=== PATIENT | male | born 1950 | race Caucasian/White ===

== ENCOUNTER 2020-04-08 09:51 | Inpatient (IN) | payer MEDICARE ==
--- NOTE | 2020-04-08 10:05 | ER Document Report ---
ED Medical Screen (RME) - General Chief Complaint: right flank Stated Complaint: RIGHT FLANK PAIN Time Seen by Provider: 04/08/20 10:00 Mode of Arrival: Ambulatory Information source: Patient Notes: 69-year-old male presented to ED for complaint of right flank pain. He does have history of ascites cirrhosis a paracentesis done on and he traveled from [place] on Wednesday. He is alert oriented respirations regular and unlabored speaking in full sentences. He is also on a heart transplant list. He states he has a history of heart problems blood pressure cholesterol cirrhosis. I have greeted and performed a rapid initial assessment of this patient. A comprehensive ED assessment and evaluation of the patient, analysis of test results and completion of medical decision making process will be conducted by an additional ED providers. Past Medical History - Social History Chew tobacco use (# tins/day): No Frequency of alcohol use: None Drug Abuse: None Physical Exam - Vital signs Vitals: Temp 98.0 F 04/08/20 09:58 Course - Vital Signs Vital signs: Temp Pulse Resp BP Pulse Ox 98.0 F 04/08/20 09:58
[2020-04-08 10:35] LABS: ABSOLUTE EOSINOPHILS # (AUTO) 0.2 10^3/uL (0.0-0.6); ABSOLUTE LYMPHOCYTES (AUTO) 0.4 10^3/uL (0.5-4.7); ABSOLUTE MONOCYTES (AUTO) 0.3 10^3/uL (0.1-1.4); ABSOLUTE NEUT (AUTO) 1.8 10^3/uL (1.7-8.2); BASOPHILS % (AUTO) 1.2 % (0-2); EOSINOPHILS % (AUTO) 8.4 % (0-6); HEMATOCRIT 24.5 % (37.9-51.0); HEMOGLOBIN 8.1 g/dL (13.5-17.0); LYMPHOCYTES % (AUTO) 15.6 % (13-45); MEAN CORPUSCULAR HEMOGLOBIN 28.2 pg (27.0-33.4); MEAN CORPUSCULAR HGB CONC 32.8 g/dL (32.0-36.0); MEAN CORPUSCULAR VOLUME 86 fl (80-97); MONOCYTES % (AUTO) 10.6 % (3-13); RED BLOOD COUNT 2.86 10^6/uL (4.35-5.55); RED CELL DISTRIBUTION WIDTH 18.3 % (11.5-14.0); SEGMENTED NEUTROPHILS % (AUTO) 64.2 % (42-78); TOTAL CELLS COUNTED % (AUTO) 100 %; WHITE BLOOD COUNT 2.8 10^3/uL (4.0-10.5)
[2020-04-08 10:39] LABS: APPEARANCE,URINE CLEAR; BILIRUBIN,URINE NEGATIVE (NEGATIVE); COLOR,URINE YELLOW; GLUCOSE, URINE NEGATIVE (NEGATIVE); KETONES,URINE NEGATIVE (NEGATIVE); LEUKOCYTE ESTERASE,URINE NEGATIVE (NEGATIVE); NITRITE,URINE NEGATIVE (NEGATIVE); PROTEIN,URINE NEGATIVE (NEGATIVE); URINE SPECIFIC GRAVITY 1.009; UROBILINOGEN,URINE NEGATIVE mg/dL (<2.0)
[2020-04-08 10:51] LABS: ALBUMIN 2.9 g/dL (3.5-5.0); ALKALINE PHOSPHATASE 74 U/L (38-126); ANION GAP 7 (5-19); ASPARTATE AMINO TRANSFERASE 29 U/L (17-59); BILIRUBIN,TOTAL 0.6 mg/dL (0.2-1.3); BLOOD UREA NITROGEN 23 mg/dL (7-20); CALCIUM 8.6 mg/dL (8.4-10.2); CARBON DIOXIDE 28 mmol/L (22-30); CHLORIDE 101 mmol/L (98-107); GLUCOSE 84 mg/dL (75-110); POTASSIUM 3.2 mmol/L (3.6-5.0); TOTAL PROTEIN 6.3 g/dL (6.3-8.2)
[2020-04-08 11:04] LABS: PLATELET COUNT 96 10^3/uL (150-450)
[2020-04-08 11:27] LABS: INTERNATIONAL RATION (INR) 1.43; PARTIAL THROMBOPLASTIN TIME 32.7 SEC (23.5-35.8); PROTHROMBIN TIME 17.5 SEC (11.4-15.4)
[2020-04-08] MEDS: ALBUMIN HUMAN 12.5 GM/50 ML RTUINJ IV SCH ×4 (11:37→17:37)
[2020-04-08 11:46] LABS: NT PRO BNP 820 pg/mL (<125)
[2020-04-08 11:50] LABS: TROPONIN I < 0.012 ng/mL
--- NOTE | 2020-04-08 11:56 | RADIOLOGY REPORT (SQ) ---
EXAM DESCRIPTION: ACUTE ABDOMEN SERIES IMAGES COMPLETED DATE/TIME: 04/08/2020 11:34 am REASON FOR STUDY: abd pain/ cirrhosis/ascites/peritonitis COMPARISON: None. NUMBER OF VIEWS: Three views. TECHNIQUE: Frontal chest, supine abdomen and upright/decubitus abdomen radiographic images acquired. LIMITATIONS: None. FINDINGS: CHEST: A stent overlies the right suprahilar region. There is fullness in the right juan r region. Mild right pleural effusion and compressive atelectasis right lower lung zone. Scarring i n the right apex of the lung. The left lung is clear. No evidence of pneumothorax. FREE AIR: None. No abnormal gas collections. BOWEL GAS PATTERN: Nonobstructive pattern. No dilated loops. A few small air-fluid levels on the upr ight image. CALCIFICATIONS: Bilateral subcentimeter nephrolithiasis. HARDWARE: None in the abdomen. SOFT TISSUES: Prominent appearance to the soft tissues right lateral abdominal wall raising the ques tion of mass. BONES: No acute fracture. No worrisome bone lesions. OTHER: No other significant finding. IMPRESSION: 1. A few nonspecific small air-fluid levels on the upright image. 2. Bilateral subcentimeter nephrolithiasis. 3. Mild fullness in the right hilar region. A stent overlies the right suprahilar region. Mild rig ht pleural effusion and compressive atelectasis right lower lung zone. Comparison with any prior out side examinations suggested. . TECHNICAL DOCUMENTATION: JOB ID: [id number] 2010 [employer]- All Rights Reserved Reading location - IP/workstation name: [email or web address]
--- NOTE | 2020-04-08 15:07 | RADIOLOGY REPORT (SQ) ---
EXAM DESCRIPTION: U/S ABD PARACENTESIS IMAGES COMPLETED DATE/TIME: 04/08/2020 1:53 pm REASON FOR STUDY: ascites/peritonitis/cirrhosis COMPARISON None. LIMITATIONS: None. PROCEDURE: The procedure, risks, benefits, and alternatives were discussed with the patient and the patient's family who then gave written consent. The left lower quadrant was then marked utilizing so nographic guidance and a time-out was performed to document correct marking verification. The area around the selected percutaneous access site was then prepped and draped with 2% chlorhexidi ne utilizing standard sterile technique. After that, the selected access site was infiltrated with 5 ml of 1% lidocaine. A 6 Icelandic Kfem-T-Mrnieujf catheter was then introduced into the fluid-filled p eritoneal cavity and the fluid was aspirated. After the fluid was aspirated, the catheter was removed and the entry site was covered with a sterile bandage. No immediate complications were noted. Volume of Fluid: 2000 mL. Quality of the Fluid: Cloudy straw colored. Was the fluid collected for analysis? Yes. Images acquired during the procedure were submitted to PACS. The patient tolerated the procedure with local anesthesia. At the end of the procedure the patient's condition was unchanged from the preprocedural baseline. Documentation of [id number] time the proceduralist spent monitoring the patient: 15 minutes. IMPRESSION: Successful ultrasound-guided paracentesis. COMMENT: Patient medication list reviewed: Yes- Quality ID# [id number]:Eligible professional attests to doc umenting in the medical record they obtained, updated, or reviewed the patient's current medications. TECHNICAL DOCUMENTATION: JOB ID: [id number] 2010 [employer]- All Rights Reserved Reading location - IP/workstation name: [email or web address]
[2020-04-08 15:09] LABS: FLUID TYPE PERITONEAL
[2020-04-08 15:10] LABS: FLUID APPEARANCE SLIGHTLY HAZY; FLUID COLOR STRAW; FLUID SOURCE ABDOMEN; FLUID VISCOSITY LIQUID
[2020-04-08] MEDS ORDERED: CEFEPIME 2 GM/D5W RTU 2 GM/50 ML RTUPB IV ONE (15:47)
[2020-04-08] MEDS ORDERED: POTASSI CL 20 MEQ/50 ML RIDER 20 MEQ/50 ML RTUPB IV SCH (15:52)
[2020-04-08] MEDS ORDERED: NORMAL SALINE 250 ML IV ONE (16:03)
--- NOTE | 2020-04-08 16:32 | ER Document Report ---
Entered by GRICEL MONTOYA SCRIBE 04/08/20 1107 Acting as scribe for:ROBBY JAMES MD ED General - General Chief Complaint: Flank Pain Stated Complaint: RIGHT FLANK PAIN Time Seen by Provider: 04/08/20 10:00 Mode of Arrival: Ambulatory Information source: Patient Notes: This 69 year old male patient presents to the emergency department today with flank pain. Patient states his has a history of cirrhosis of the liver and has a paracentesis every other week. Patient states his last paracentesis was x4 days ago in [place]. Patient states he lives in [place] and is visiting [place] to see his sister and granddaughter. Patient states he left [place] x3 days ago to travel here and noticed swelling in his legs x2 days ago. Patient also notes swelling in his abdomen and penis. - Related Data Allergies/Adverse Reactions: Sulfa (Sulfonamide Antibiotics) Allergy (Verified 04/08/20 10:04) Difficulty breathing adhesive tape Adverse Reaction (Verified 04/08/20 10:04) heparin Adverse Reaction (Verified 04/08/20 10:04) Past Medical History - General Information source: Patient - Social History Smoking Status: Never Smoker Cigarette use (# per day): No Chew tobacco use (# tins/day): No Frequency of alcohol use: None Drug Abuse: None Lives with: Family Family History: Reviewed & Not Pertinent Patient has homicidal ideation: No - Past Medical History Cardiac Medical History: Reports: Hx Hypercholesterolemia, Hx Hypertension Pulmonary Medical History: Reports: Hx COPD Renal/ Medical History: Reports: Hx Kidney Stones Malignancy Medical History: Reports Hx Lung Cancer - 2011 GI Medical History: Reports: Hx Cirrhosis - liver Past Surgical History: Reports: Hx Orthopedic Surgery - r thumb Review of Systems - Review of Systems Constitutional: No symptoms reported EENT: No symptoms reported Cardiovascular: No symptoms reported Respiratory: No symptoms reported Gastrointestinal: See HPI, Abdomen distended Genitourinary: See HPI, Flank pain Male Genitourinary: See HPI Musculoskeletal: No symptoms reported Skin: No symptoms reported Hematologic/Lymphatic: No symptoms reported Neurological/Psychological: No symptoms reported -: Yes All other systems reviewed and negative Physical Exam - Vital signs Vitals: Temp Pulse Resp BP Pulse Ox 98.0 F 79 16 97/59 L 100 04/08/20 09:56 04/08/20 09:56 04/08/20 09:56 04/08/20 09:56 04/08/20 09:56 - General General appearance: Appears well, Alert - HEENT Head: Normocephalic, Atraumatic Eyes: Normal Pupils: PERRL Mouth/Lips: Other - Edentulous - Respiratory Respiratory status: No respiratory distress Chest status: Nontender Breath sounds: Normal Chest palpation: Normal - Cardiovascular Rhythm: Regular Heart sounds: Normal auscultation, S1 appreciated, S2 appreciated Murmur: No - Abdominal Inspection: Other - Skin is warm Distension: Distended, Fluid wave Bowel sounds: Normal Tenderness: Other - Tenderness with rebound - Extremities General upper extremity: Other - bilateral ecchymosis. No: Edema Notes: Tenderness with palpation to the left calf. Edema and erythema of the left calf. Skin is warm. - Neurological Neuro grossly intact: Yes Cognition: Normal Orientation: AAOx4 Speech: Normal - Psychological Associated symptoms: Normal affect, Normal mood - Skin Skin Temperature: Warm Skin Moisture: Dry Skin Color: Normal Course - Re-evaluation Re-evalutation: 04/08/20 16:06 Patient is status post paracentesis. Patient was draining cloudy yellow fluid about 2 L,. No complications of the procedure. Patient is now receiving IV albumin 50 g . Patient is currently hypotensive with a systolic of 70. Discussed case with the hospitalist regarding admission and the plan is to continue the albumin infusions and also give patient a 250 bolus of normal saline. Patient also will be receiving another 250 mL of fluid with the IV p otassium riders. 04/08/20 16:08 Patient has chronic anemia of chronic disease. Patient has cryptic cirrhosis of the liver and recurrent paracentesis every other week is done in his home town in [place]. Patient also takes diuretic medications to assist in getting rid of fluids. Patient is out of town and have traveled about 3 days to get here from [place] to visit with family members. Patient developed some edema and his lower extremities pain in his left calf scrotal edema as well and increased ascites and warm to touch skin in the left leg and the abdominal area. On exam patient had rebound tenderness and I was suspicious for acute spontaneous bacterial peritonitis. Patient has been worked up to that degree inasmuch as he did have clouded aspirate drainage during the paracentesis. 04/08/20 16:32 Patient's blood pressure is now up to 92/67 patient in no acute distress. - Vital Signs Vital signs: Temp Pulse Resp BP Pulse Ox 98.0 F 79 15 70/49 L 100 04/08/20 10:05 04/08/20 10:05 04/08/20 15:16 04/08/20 15:16 04/08/20 15:16 - Laboratory Result Diagrams: 04/08/20 10:21 04/08/20 10:21 Laboratory results interpreted by me: 04/08/20 04/08/20 04/08/20 10:21 10:21 10:21 WBC 2.8 L RBC 2.86 L Hgb 8.1 L Hct 24.5 L RDW 18.3 H Plt Count 96 L Eos % (Auto) 8.4 H Absolute Lymphs (auto) 0.4 L PT 17.5 H D-Dimer Sodium 135.7 L Potassium 3.2 L BUN 23 H Creatinine 1.47 H Est GFR ( Amer) 58 L Est GFR (MDRD) Non-Af 48 L NT-Pro-B Natriuret Pep Albumin 2.9 L 04/08/20 04/08/20 10:21 10:21 WBC RBC Hgb Hct RDW Plt Count Eos % (Auto) Absolute Lymphs (auto) PT D-Dimer 3.23 H Sodium Potassium BUN Creatinine Est GFR ( Amer) Est GFR (MDRD) Non-Af NT-Pro-B Natriuret Pep 820 H Albumin 04/08/20 16:09 Patient had several abnormal laboratories including white blood cell count 2.8 hemoglobin 8.1 platelet count of 96 patient also has some renal insufficiency with a BUN of 23 and creatinine 1.4 patient has a positive d-dimer 3.2 BNP of 820. Patient shared with me his prior labs that he has included in his cell phone. And in March patient's creatinine was 1.3. Patient's hemoglobin remains an 8 point to 8.5 region. Platelet counts as usual as usual around 95 patient is white count has been low and lower on the labs that he shared with [facility] prior to coming to [place] he had levels of 1.8 and 2.0 in March. - Diagnostic Test Radiology reviewed: Image reviewed, Reports reviewed Radiology results interpreted by me: 04/08/20 16:11 Abdominal acute abdominal series. Patient has nonspecific specific bowel gas pattern no obstruction seen. Patient's chest x-ray does not show an infiltrate however patient does have a right hilar fullness and a stent is in is noted in that area. Also noted is a right pleural effusion and compression atelectasis in the right base. 04/08/20 16:12 Venous Doppler study of both lower extremities shows no evidence of DVT. 04/08/20 16:24 - EKG Interpretation by Me Additional EKG results interpreted by me: 04/08/20 16:30 Twelve-lead EKG shows normal sinus rhythm rate of 84 borderline T wave abnormalities in diffuse leads. Critical Care Note - Critical Care Note Total time excluding time spent on procedures (mins): 39 - Patient with multiple medical problems including ascites hypotension cellulitis peritonitis and management of fluids and scheduling scans work-up DVT as well as spontaneous bacterial peritonitis and coordinating discussing laboratory values and management of patient's hypertension. Discharge - Discharge Clinical Impression: Cirrhosis of liver with ascites, Abdominal pain, Peritonitis (acute) generalized, Cellulitis of left leg, Chronic leukopenia, Chronic anemia, Chronic idiopathic thrombocytopenia Condition: Fair Disposition: ADMITTED INPATIENT Admitting Provider: Layla (Hospitalist) Unit Admitted: Telemetry I personally performed the services described in the documentation, reviewed and edited the documentation which was dictated to the scribe in my presence, and it accurately records my words and actions.
--- NOTE | 2020-04-08 16:33 | RADIOLOGY REPORT (SQ) ---
EXAM DESCRIPTION: VENOUS BILATERAL LOWER IMAGES COMPLETED DATE/TIME: 04/08/2020 4:19 pm REASON FOR STUDY: lower ext swelling COMPARISON: None. TECHNIQUE: Dynamic and static katz scale and color images acquired of both lower extremity venous sy stems. Selected spectral images acquired with additional compression and augmentation maneuvers. Imag es stored on PACS. LIMITATIONS: None. FINDINGS: RIGHT LEG COMMON FEMORAL AND FEMORAL: Normal phasicity, compression and augmentation. No visualized echogenic m aterial on katz scale. No defects on color images. POPLITEAL: Normal compression and augmentation. No visualized echogenic material on katz scale. No de fects on color images. CALF VESSELS: Normal compression and augmentation. No visualized echogenic material on katz scale. No defects on color image. GSV AND SSV: Normal compression. No visualized echogenic material on katz scale. No defects on color images. ANY DEEP VENOUS INSUFFICIENCY: No. ANY EVIDENCE OF POPLITEAL CYST: No. OTHER: No other finding. LEFT LEG COMMON FEMORAL AND FEMORAL: Normal phasicity, compression and augmentation. No visualized echogenic m aterial on katz scale. No defects on color images. POPLITEAL: Normal compression and augmentation. No visualized echogenic material on katz scale. No de fects on color images. CALF VESSELS: Normal compression and augmentation. No visualized echogenic material on katz scale. No defects on color images. GSV AND SSV: Normal compression. No visualized echogenic material on katz scale. No defects on color images. ANY DEEP VENOUS INSUFFICIENCY: No. ANY EVIDENCE POPLITEAL CYST: No. OTHER: No other finding. IMPRESSION: NO EVIDENCE DVT OR SVT IN EITHER LEG. TECHNICAL DOCUMENTATION: JOB ID: [id number] 2010 [employer]- All Rights Reserved Reading location - IP/workstation name: [email or web address]
[2020-04-08] MEDS ORDERED: ACETAMINOPHEN 325 MG TABLET PO PRN (16:58)
[2020-04-08] MEDS ORDERED: NORMAL SALINE 1000 ML 1,000 ML IV PRN ×2 (16:58→17:47)
[2020-04-08] MEDS ORDERED: ALBUTEROL SULFATE 0.083% NEB 2.5 MG/3 ML AMPUL NEB PRN (16:58)
[2020-04-08] MEDS ORDERED: MAG HYDROX/AL HYDROX/SIMETH SUSP 30 ML UDCUP PO PRN (17:04)
[2020-04-08] MEDS ORDERED: PROMETHAZINE HCL INJ 25 MG/1 ML VIAL IV PRN (17:04)
[2020-04-08] MEDS ORDERED: OXYCODONE-ACETAMINOPHEN 5-325 MG TABLET PO PRN (17:04)
[2020-04-08] MEDS ORDERED: ONDANSETRON HCL INJ/PF 4 MG/2 ML SDV IV PRN (17:04)
[2020-04-08] MEDS: POTASSIUM CHLORIDE 10 MEQ TABLET.ER PO SCH ×2 (17:36→22:50)
--- NOTE | 2020-04-08 17:49 | PDOC H&P ---
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 Following that he drove cross-country from [place] to [place]; states that he felt well while traveling. However, on Wednesday developed right abdominal/flank discomfort, bilateral lower extremity erythema, and scrotal edema which has not occurred to him in the past. Valuation in the emergency department demonstrated hypotension (75/54 following paracentesis and removal of 2 L fluid here) but without significant tachycardia or symptomology. Patient reports that his normal blood pressures typically run 100 systolic over 70s to 80s. He was also found to have pancytopenia (WBC is 2.8, hemoglobin 9.1, platelet 96) which he reports is his norm; received Venofer infusion and B12 prior to his trip. INR elevated to 1.43, d-dimer 3.23, chemistry notable for mild hyponatremia, hypokalemia, creatinine 1.47/BUN 23, proBNP 820, albumin 2.90 with a negative lactic acid. Urinalysis is negative. Paracentesis with removal of 2 L hazy straw fluid does not appear to be SBP (WBC is 141, RBC 116, neutrophils 32; cultures pending. LLE Venous Doppler is negative for SVT/DVT. He is provided 1L NS, Cefepime 2gm, and Albumin 50 gm by the ED provider. He is referred to the hospitalist service for admission and management of the above stated complaints and findings. Past Medical History Cardiac Medical History: Reports: Hyperlipidema, Hypertension Denies: Congestive Heart Failure, Coronary Artery Disease, DVT, Myocardial Infarction Pulmonary Medical History: Reports: Chronic Obstructive Pulmonary Disease (COPD) EENT Medical History: Reports: None Neurological Medical History: Reports: None Endocrine Medical History: Reports: Hypothyroidism Denies: Diabetes Mellitus Type 2 Renal/ Medical History: Reports: None Malignancy Medical History: Reports: Lung Cancer - 2012 GI Medical History: Reports: Cirrhosis - ASH Musculoskeltal Medical History: Reports: None Skin Medical History: Reports: None Psychiatric Medical History: Reports: None Traumatic Medical History: Reports: None Hematology: Reports: Anemia Infectious Medical History: Reports: None Past Surgical History Past Surgical History: Reports: Orthopedic Surgery - r thumb Social History Information Source: Patient Lives with: Family Smoking Status: Never Smoker Electronic Cigarette use?: No Frequency of Alcohol Use: None Hx Recreational Drug Use: No Hx Prescription Drug Abuse: No Family History Family History: Reviewed & Not Pertinent Parental Family History Reviewed: Yes Children Family History Reviewed: Yes Sibling(s) Family History Reviewed.: Yes Medication/Allergy Allergies/Adverse Reactions: Sulfa (Sulfonamide Antibiotics) Allergy (Verified 04/08/20 10:04) Difficulty breathing adhesive tape Adverse Reaction (Verified 04/08/20 10:04) heparin Adverse Reaction (Verified 04/08/20 10:04) Review of Systems Constitutional: ABSENT: chills, fever(s), headache(s), weight gain, weight loss Eyes: ABSENT: visual disturbances Ears: ABSENT: hearing changes Cardiovascular: ABSENT: chest pain, dyspnea on exertion, edema, orthropnea, palpitations Respiratory: ABSENT: cough, hemoptysis Gastrointestinal: PRESENT: as per HPI, abdominal pain. ABSENT: constipation, diarrhea, hematemesis, hematochezia, nausea, vomiting Genitourinary: PRESENT: as per HPI. ABSENT: dysuria, hematuria Musculoskeletal: ABSENT: joint swelling Integumentary: PRESENT: as per HPI, erythema - BLE; L>R. ABSENT: rash, wounds Neurological: ABSENT: abnormal gait, abnormal speech, confusion, dizziness, focal weakness, syncope Psychiatric: ABSENT: anxiety, depression, homidical ideation, suicidal ideation Endocrine: ABSENT: cold intolerance, heat intolerance, polydipsia, polyuria Hematologic/Lymphatic: ABSENT: easy bleeding, easy bruising Physical Exam Vital Signs: Temp Pulse Resp BP Pulse Ox 98.0 F 79 20 92/67 L 100 04/08/20 10:05 04/08/20 10:05 04/08/20 16:16 04/08/20 16:16 04/08/20 16:16 Intake & Output 04/07/20 04/08/20 04/09/20 06:59 06:59 06:59 Intake Total 150 Balance 150 Weight 80.1 kg General appearance: PRESENT: no acute distress, cooperative, thin - loss of muscle mass and subcutaneous fat; large abdomen/panniculus, well-developed, well-nourished Head exam: PRESENT: atraumatic, normocephalic Eye exam: PRESENT: conjunctiva pink, EOMI, PERRLA. ABSENT: scleral icterus Mouth exam: PRESENT: moist, tongue midline Neck exam: ABSENT: carotid bruit, JVD, lymphadenopathy, thyromegaly Respiratory exam: PRESENT: clear to auscultation juan, symmetrical, unlabored. ABSENT: rales, rhonchi, wheezes Cardiovascular exam: PRESENT: RRR, +S1, +S2. ABSENT: diastolic murmur, rubs, systolic murmur Pulses: PRESENT: normal dorsalis pedis pul Vascular exam: PRESENT: normal capillary refill GI/Abdominal exam: PRESENT: normal bowel sounds, soft, tenderness - RLQ; pain seems to be localized to soft tissues of panniculus not peritoneal space/organs. ABSENT: distended, guarding, mass, organolmegaly, rebound Rectal exam: PRESENT: deferred Extremities exam: PRESENT: full ROM. ABSENT: calf tenderness, clubbing, pedal edema Neurological exam: PRESENT: alert, awake, oriented to person, oriented to place, oriented to time, oriented to situation, CN II-XII grossly intact. ABSENT: motor sensory deficit Psychiatric exam: PRESENT: appropriate affect, normal mood. ABSENT: homicidal ideation, suicidal ideation Skin exam: PRESENT: dry, erythema - w/ warmth and slight edema to BLE; L>R, warm. ABSENT: cyanosis, rash Results Laboratory Results: 04/08/20 10:21 04/08/20 10:21 04/08/20 04/08/20 04/08/20 10:21 10:21 10:21 WBC 2.8 L RBC 2.86 L Hgb 8.1 L Hct 24.5 L MCV 86 MCH 28.2 MCHC 32.8 RDW 18.3 H Plt Count 96 L Seg Neutrophils % 64.2 Sodium 135.7 L Potassium 3.2 L Chloride 101 Carbon Dioxide 28 Anion Gap 7 BUN 23 H Creatinine 1.47 H Est GFR ( Amer) 58 L Glucose 84 Lactic Acid Calcium 8.6 Total Bilirubin 0.6 AST 29 Alkaline Phosphatase 74 Total Protein 6.3 Albumin 2.9 L Lipase 39.0 Urine Color YELLOW Urine Appearance CLEAR Urine pH 7.0 Ur Specific Granger 1.009 Urine Protein NEGATIVE Urine Glucose (UA) NEGATIVE Urine Ketones NEGATIVE Urine Blood NEGATIVE Urine Nitrite NEGATIVE Ur Leukocyte Esterase NEGATIVE Urine WBC (Auto) 3 Urine RBC (Auto) 1 Fluid Type Fluid Source Fluid Color Fluid Appearance Fluid Viscosity Fluid WBC Fluid RBC 04/08/20 04/08/20 04/08/20 10:21 11:10 13:08 WBC RBC Hgb Hct MCV MCH MCHC RDW Plt Count Seg Neutrophils % Sodium Potassium Chloride Carbon Dioxide Anion Gap BUN Creatinine Est GFR ( Amer) Glucose Lactic Acid 1.4 Calcium Total Bilirubin AST Alkaline Phosphatase Total Protein Albumin Lipase Urine Color Cancelled Urine Appearance Cancelled Urine pH Cancelled Ur Specific Granger Cancelled Urine Protein Cancelled Urine Glucose (UA) Cancelled Urine Ketones Cancelled Urine Blood Cancelled Urine Nitrite Cancelled Ur Leukocyte Esterase Cancelled Urine WBC (Auto) Cancelled Urine RBC (Auto) Cancelled Fluid Type PERITONEAL Fluid Source ABDOMEN Fluid Color STRAW Fluid Appearance SLIGHTLY HAZY Fluid Viscosity LIQUID Fluid WBC 141 Fluid RBC 116 04/08/20 10:21 Troponin I < 0.012 NT-Pro-B Natriuret Pep 820 H Impressions: Paracentesis Ultrasound 04/08/20 00:00 IMPRESSION: Successful ultrasound-guided paracentesis. Acute Abdomen Series 04/08/20 11:05 IMPRESSION: 1. A few nonspecific small air-fluid levels on the upright image. 2. Bilateral subcentimeter nephrolithiasis. 3. Mild fullness in the right hilar region. A stent overlies the right suprahilar region. Mild right pleural effusion and compressive atelectasis right lower lung zone. Comparison with any prior outside examinations suggested. . Venous Doppler Study 04/08/20 12:00 IMPRESSION: NO EVIDENCE DVT OR SVT IN EITHER LEG. Assessment and Plan - Diagnosis (1) Hypotension Qualifiers: Hypotension type: unspecified hypotension type Qualified Code(s): I95.9 - Hypotension, unspecified Is this a current diagnosis for this admission?: Yes Plan: Patient reports typical blood pressures 100s/70-80 70/49 following paracentesis w/ slight increase in HR He has received 1L NS by ED provider. Random and AM cortisol levels pending TSH pending Admitted to the medical floor Continue NS @ 50ml/hr Start Midodrine 5 mg TID Orthostatic blood pressures each shift CARROL hose Fall precautions (2) Cellulitis of left leg Is this a current diagnosis for this admission?: Yes Plan: LLE +1 edema with erythema, warmth, and tenderness Venous Doppler negative for SVT/DVT Blood cultures pending Elevate as tolerated IV Cefepime Analgesics as needed (3) Abdominal pain Qualifiers: Abdominal location: right lower quadrant Qualified Code(s): R10.31 - Right lower quadrant pain Is this a current diagnosis for this admission?: Yes Plan: On exam, pain seems to be localized to soft tissues of panniculus not peritoneal space/organs He does have dense, pitting edema to this area of his abdomen. No erythema not ed. Paracentesis today does not appear infections; cultures pending Blood cultures pending. Will empirically treat with IV Cefepime pending culture results Analgesics as needed (4) Pancytopenia Is this a current diagnosis for this admission?: Yes Plan: Chronic per patient. Likely complicated by Cirrhosis. Recently started receiving Venofer and B12. No evidence of bleeding. Monitor CBC (5) Chronic anemia Is this a current diagnosis for this admission?: Yes Plan: As above. (6) Cirrhosis of liver with ascites Qualifiers: Hepatic cirrhosis type: unspecified hepatic cirrhosis Qualified Code(s): K74.60 - Unspecified cirrhosis of liver; R18.8 - Other ascites Is this a current diagnosis for this admission?: Yes Plan: Patient reports related to ASH Receives paracentesis q14 days. Paracentesis / with 8.3L removed followed by albumin Paracentesis today with 2L removed followed by albumin Resume home medications once reconciled. - Time Time Spent with patient: 35 or more minutes Medications reviewed and adjusted accordingly: Yes Anticipated discharge: Home Within: within 72 hours - Inpatient Certification Based on my medical assessment, after consideration of the patient's comorbi dities, presenting symptoms, or acuity I expect that the services needed warrant INPATIENT care.: Yes I certify that my determination is in accordance with my understanding of Medicare's requirements for reasonable and necessary INPATIENT services [42 CFR 412.3e].: Yes Medical Necessity: Significant Comorbidiites Make Outpatient Treatment Too Risky, Need For IV Fluids, Need for IV Antibiotics, Risk of Complication if Not Cared For in Hospital
[2020-04-08] MEDS: MIDODRINE HCL 5 MG TABLET PO SCH (19:06)
[2020-04-08] MEDS ORDERED: CEFEPIME 2 GM/D5W RTU 2 GM/50 ML RTUPB IV SCH (22:00)
[2020-04-08] MEDS: FAMOTIDINE 20 MG TABLET PO SCH (22:50)
[2020-04-09] MEDS ORDERED: CEFEPIME 2 GM/D5W RTU 2 GM/50 ML RTUPB IV ONE (00:31)
[2020-04-09] MEDS: FAMOTIDINE 20 MG TABLET PO SCH (00:38)
[2020-04-09 05:15] LABS: HEMATOCRIT 20.3 % (37.9-51.0); MEAN CORPUSCULAR HGB CONC 33.5 g/dL (32.0-36.0); MEAN CORPUSCULAR VOLUME 84 fl (80-97); RED BLOOD COUNT 2.43 10^6/uL (4.35-5.55); RED CELL DISTRIBUTION WIDTH 18.1 % (11.5-14.0)
[2020-04-09 05:22] LABS: INTERNATIONAL RATION (INR) 1.52; PROTHROMBIN TIME 18.5 SEC (11.4-15.4)
[2020-04-09 05:28] LABS: PLATELET COUNT 63 10^3/uL (150-450)
[2020-04-09 05:29] LABS: HEMOGLOBIN 6.8 g/dL (13.5-17.0)
[2020-04-09 05:36] LABS: ALBUMIN 2.7 g/dL (3.5-5.0); ALKALINE PHOSPHATASE 61 U/L (38-126); ASPARTATE AMINO TRANSFERASE 23 U/L (17-59); BILIRUBIN,TOTAL 0.6 mg/dL (0.2-1.3); BLOOD UREA NITROGEN 19 mg/dL (7-20); CALCIUM 8.5 mg/dL (8.4-10.2); GLUCOSE 86 mg/dL (75-110); POTASSIUM 3.9 mmol/L (3.6-5.0); TOTAL PROTEIN 5.6 g/dL (6.3-8.2)
[2020-04-09 05:42] LABS: ANION GAP 6 (5-19); CARBON DIOXIDE 26 mmol/L (22-30); CHLORIDE 103 mmol/L (98-107)
[2020-04-09 05:43] LABS: ABSOLUTE LYMPHOCYTES# (MANUAL) 0.2 10^3/uL (0.5-4.7); BASOPHILS % (MANUAL) 2 % (0-2); EOSINOPHILS % (MANUAL) 0 % (0-6); LYMPHOCYTES % (MANUAL) 10 % (13-45); MONOCYTES % (MANUAL) 0 % (3-13); SEGMENTED NEUTROPHILS % (MAN) 88 % (42-78); TOTAL CELLS COUNTED 50
[2020-04-09 05:47] LABS: ANISOCYTOSIS 1+; OVALOCYTES 1+; PLATELET COMMENT DECREASED; POIKILOCYTOSIS 1+; TOXIC GRANULATION SLIGHT
[2020-04-09 05:50] LABS: WHITE BLOOD COUNT 1.5 10^3/uL (4.0-10.5)
[2020-04-09] MEDS ORDERED: NORMAL SALINE 250 ML IV PRN ×2 (08:23)
[2020-04-09] MEDS ORDERED: HYDROXYZINE PAMOATE 25 MG CAPSULE PO PRN (09:29)
[2020-04-09 09:32] LABS: ABSOLUTE RETICS # 0.076 10^6/uL (0.028-0.122); RETICULOCYTE COUNT (AUTO) 3.12 % (0.66-2.85)
--- NOTE | 2020-04-09 09:32 | EKG REPORT ---
SEVERITY:- ABNORMAL ECG - ATRIAL FLUTTER, A-RATE 300 NONSPECIFIC T ABNORMALITIES, DIFFUSE LEADS : Confirmed by: Kitty Tomlinson MD 09-Apr-2020 09:31:47
[2020-04-09 09:53] LABS: IRON(TIBC) 45.9 ug/dL (49-181)
[2020-04-09] MEDS ORDERED: SPIRONOLACTONE 25 MG TABLET PO SCH (10:00)
[2020-04-09] MEDS ORDERED: (PENDING PHARMACY ID) (Magnesium Oxide [Magnesium] 400 MG) PO SCH (10:00)
[2020-04-09] MEDS ORDERED: FUROSEMIDE 20 MG TABLET PO SCH (10:00)
[2020-04-09] MEDS ORDERED: (PENDING PHARMACY ID) (Vitamin E [Vitamin E] 400 UNIT) PO SCH (10:00)
[2020-04-09] MEDS: RIFAXIMIN 550 MG TABLET PO SCH ×2 (10:36→17:47)
[2020-04-09] MEDS: CYANOCOBALAMIN (VITAMIN B-12) 1,000 MCG TABLET PO SCH (10:37)
[2020-04-09] MEDS: CEFEPIME HCL 2 GM in DEXTROSE 5%-WATER 50 ML IV SCH ×2 (10:37→21:50)
[2020-04-09] MEDS: CHOLECALCIFEROL (D3) 1,000 UNIT (25 MCG) TABLET PO SCH (10:37)
[2020-04-09] MEDS: DOCUSATE SODIUM 100 MG CAPSULE PO SCH (10:50)
[2020-04-09] MEDS: MIDODRINE HCL 5 MG TABLET PO SCH ×3 (10:51→17:34)
[2020-04-09] MEDS: POLYETHYLENE GLYCOL 3350 POWDER 17 GM/1 PACKET PO SCH (10:51)
[2020-04-09 10:56] LABS: FOLATE 3.93 ng/mL (>2.76)
[2020-04-09] MEDS ORDERED: LEVOTHYROXINE SODIUM 0.088 MG TABLET PO ONE (12:00)
[2020-04-09] MEDS: OXYCODONE HCL IR 5 MG TABLET PO PRN ×2 (12:20→21:49)
--- NOTE | 2020-04-09 12:30 | PDOC PROGRESS REPORT ---
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 Patient was seen on morning rounds. He was found sitting up to the recliner, co mfortably, on room air. He reports that he is very upset today and has numerous complaints. He wants to be discharged today and is not satisfied with continued IV antibiotics pending blood and peritoneal fluid culture results. He is also frustrated that [facility] uses generic version of medications that or not similar to what he takes at home. He states that he has had an adverse reaction to spir onolactone and wants that discontinued; he is educated on the importance of addressing allergies and adverse reactions upon each admission so that these medications can be avoided. In fact, he has a complaint about every medication ordered at this time. Greater than 30 minutes was spent at the bedside discussing his medication regiment, anemia with recommendation for transfusion, antibiotics pending blood culture results, and continued recommendation that he remain in-house. He is advised of his right to leave AGAINST MEDICAL ADVICE or to decline individual interventions/medications. At the end of the discussion, the patient remains frustrated, however, is agreeable with continuing the plan for transfusion and antibiotics. He denies fever, chills, chest pain, dyspnea, cough, abdominal pain, nausea and vomiting. Discussed plan of care with nursing. Reason For Visit: CELLULITIS Physical Exam Vital Signs: Temp Pulse Resp BP Pulse Ox 99.1 F 115 H 16 110/60 100 04/09/20 11:20 04/09/20 11:20 04/09/20 11:20 04/09/20 11:20 04/09/20 11:20 Intake & Output 04/08/20 04/09/20 04/10/20 06:59 06:59 06:59 Intake Total 550 Output Total 200 Balance 350 Weight 80.1 kg General appearance: PRESENT: no acute distress, thin - loss of muscle mass and subcutaneous fat; large abdomen/panniculus, well-developed. ABSENT: cooperative Head exam: PRESENT: atraumatic, normocephalic Eye exam: PRESENT: conjunctiva pink, EOMI, PERRLA. ABSENT: scleral icterus Ear exam: PRESENT: normal external ear exam Mouth exam: PRESENT: moist, tongue midline Respiratory exam: PRESENT: symmetrical, unlabored, other - Room air Cardiovascular exam: PRESENT: RRR Vascular exam: PRESENT: normal capillary refill Extremities exam: PRESENT: full ROM. ABSENT: calf tenderness, clubbing, pedal edema Musculoskeletal exam: PRESENT: ambulatory Neurological exam: PRESENT: alert, awake, oriented to person, oriented to place, oriented to time, oriented to situation, CN II-XII grossly intact. ABSENT: motor sensory deficit Psychiatric exam: PRESENT: agitated, appropriate affect, normal mood. ABSENT: homicidal ideation, suicidal ideation Skin exam: PRESENT: dry, erythema - BLE; improved from yesterday, warm. ABSENT: cyanosis, rash Results Laboratory Results: 04/09/20 04:13 04/09/20 04:13 04/08/20 04/09/20 04/09/20 13:08 04:13 04:13 WBC 1.5 L* D RBC 2.43 L Hgb 6.8 L Hct 20.3 L MCV 84 MCH 28.0 MCHC 33.5 RDW 18.1 H Plt Count 63 L Seg Neutrophils % Not Reportable Retic Count (auto) Sodium 134.9 L Potassium 3.9 Chloride 103 Carbon Dioxide 26 Anion Gap 6 BUN 19 Creatinine 1.31 H Est GFR ( Amer) > 60 Glucose 86 Calcium 8.5 Iron TIBC % Saturation Transferrin Ferritin Total Bilirubin 0.6 AST 23 Alkaline Phosphatase 61 Total Protein 5.6 L Albumin 2.7 L Vitamin B12 Folate TSH Fluid Type PERITONEAL Fluid Source ABDOMEN Fluid Color STRAW Fluid Appearance SLIGHTLY HAZY Fluid Viscosity LIQUID Fluid WBC 141 Fluid RBC 116 Blood Type Antibody Screen 04/09/20 04/09/20 04/09/20 04:13 09:00 09:00 WBC RBC Hgb Hct MCV MCH MCHC RDW Plt Count Seg Neutrophils % Retic Count (auto) 3.12 H Sodium Potassium Chloride Carbon Dioxide Anion Gap BUN Creatinine Est GFR ( Amer) Glucose Calcium Iron 45.9 L TIBC 198 L % Saturation 23 Transferrin Ferritin 102.00 Total Bilirubin AST Alkaline Phosphatase Total Protein Albumin Vitamin B12 > 1000.0 H Folate 3.93 TSH 3.65 Fluid Type Fluid Source Fluid Color Fluid Appearance Fluid Viscosity Fluid WBC Fluid RBC Blood Type Antibody Screen 04/09/20 04/09/20 09:00 09:00 WBC RBC Hgb Hct MCV MCH MCHC RDW Plt Count Seg Neutrophils % Retic Count (auto) Sodium Potassium Chloride Carbon Dioxide Anion Gap BUN Creatinine Est GFR ( Amer) Glucose Calcium Iron TIBC % Saturation Transferrin 121.61 L Ferritin Total Bilirubin AST Alkaline Phosphatase Total Protein Albumin Vitamin B12 Folate TSH Fluid Type Fluid Source Fluid Color Fluid Appearance Fluid Viscosity Fluid WBC Fluid RBC Blood Type A POSITIVE Antibody Screen NEGATIVE 04/08/20 10:21 Troponin I < 0.012 NT-Pro-B Natriuret Pep 820 H Impressions: Paracentesis Ultrasound 04/08/20 00:00 IMPRESSION: Successful ultrasound-guided paracentesis. Acute Abdomen Series 04/08/20 11:05 IMPRESSION: 1. A few nonspecific small air-fluid levels on the upright image. 2. Bilateral subcentimeter nephrolithiasis. 3. Mild fullness in the right hilar region. A stent overlies the right suprahilar region. Mild right pleural effusion and compressive atelectasis right lower lung zone. Comparison with any prior outside examinations suggested. . Venous Doppler Study 04/08/20 12:00 IMPRESSION: NO EVIDENCE DVT OR SVT IN EITHER LEG. Assessment and Plan - Diagnosis (1) Hypotension Qualifiers: Hypotension type: unspecified hypotension type Qualified Code(s): I95.9 - Hypotension, unspecified Is this a current diagnosis for this admission?: Yes Plan: Improved; BP 110/60. Patient reports typical blood pressures 100s/70-80 Yesterday blood pressure was 70/49 following paracentesis w/ slight increase in HR Random and a.m. cortisol levels are appropriate TSH normal Admitted to the medical floor Continue NS @ 50ml/hr Continue midodrine 5 mg TID; will hold for SBP greater than 100 per patient request Orthostatic blood pressures each shift CARROL hose Fall precautions (2) Cellulitis of left leg Is this a current diagnosis for this admission?: Yes Plan: Low-grade temperature of 99; WBC is trending down 2.8->1.5. Absolute neutrophil 1.3 LLE +1 edema with erythema, warmth, and tenderness; slightly improved today Venous Doppler negative for SVT/DVT Blood cultures negative at 24 hours Elevate as tolerated IV Cefepime Analgesics as needed (3) Abdominal pain Qualifiers: Abdominal location: right lower quadrant Qualified Code(s): R10.31 - Right lower quadrant pain Is this a current diagnosis for this admission?: Yes Plan: On exam, pain seems to be localized to soft tissues of panniculus not peritoneal space/organs He does have dense, pitting edema to this area of his abdomen. No erythema n oted. Paracentesis yesterday does not appear infections; cultures negative at 1 day Blood cultures negative at 24 hours Will empirically treat with IV Cefepime pending culture results Analgesics as needed (4) Pancytopenia Is this a current diagnosis for this admission?: Yes Plan: Worsened today. Chronic per patient. Likely complicated by Cirrhosis. Stated he recently started receiving Venofer and B12. Panel confirms iron deficiency anemia No evidence of bleeding. We will transfuse 1 unit PRBC for hemoglobin drift 8.1-> 6.8 associated with hypotension and tachycardia. Monitor CBC (5) Chronic anemia Is this a current diagnosis for this admission?: Yes Plan: As above. (6) Cirrhosis of liver with ascites Qualifiers: Hepatic cirrhosis type: unspecified hepatic cirrhosis Qualified Code(s): K74.60 - Unspecified cirrhosis of liver; R18.8 - Other ascites Is this a current diagnosis for this admission?: Yes Plan: Patient reports related to ASH Receives paracentesis q14 days. Paracentesis / with 8.3L removed followed by albumin Paracentesis today with 2L removed followed by albumin Have resumed home dose rifaximin and Bumex. - Time Time Spent with patient: 35 or more minutes Medications reviewed and adjusted accordingly: Yes Anticipated discharge: Home Within: within 48 hours - Pending negative culture results.
[2020-04-09 13:21] LABS: PATH REVIEW PATHOLOGIST REVIEWED
[2020-04-09 13:23] LABS: PATH REVIEW PATHOLOGIST REVIEWED
[2020-04-09] MEDS: VITAMIN E (DL, ACETATE) 400 UNIT CAPSULE PO SCH (17:47)
[2020-04-09] MEDS ORDERED: PANTOPRAZOLE SODIUM 40 MG TABLET.DR PO SCH (18:00)
[2020-04-09 19:25] LABS: HEMATOCRIT 24.8 % (37.9-51.0); HEMOGLOBIN 8.2 g/dL (13.5-17.0); MEAN CORPUSCULAR HEMOGLOBIN 27.9 pg (27.0-33.4); MEAN CORPUSCULAR HGB CONC 32.9 g/dL (32.0-36.0); MEAN CORPUSCULAR VOLUME 85 fl (80-97); RED BLOOD COUNT 2.92 10^6/uL (4.35-5.55); RED CELL DISTRIBUTION WIDTH 17.9 % (11.5-14.0); WHITE BLOOD COUNT 1.9 10^3/uL (4.0-10.5)
[2020-04-09 19:50] LABS: PLATELET COUNT 63 10^3/uL (150-450)
[2020-04-09 19:53] LABS: ABSOLUTE LYMPHOCYTES# (MANUAL) 0.2 10^3/uL (0.5-4.7); ABSOLUTE MONOCYTES # (MANUAL) 0.2 10^3/uL (0.1-1.4); BASOPHILS % (MANUAL) 0 % (0-2); EOSINOPHILS % (MANUAL) 0 % (0-6); LYMPHOCYTES % (MANUAL) 12 % (13-45); MONOCYTES % (MANUAL) 10 % (3-13); SEGMENTED NEUTROPHILS % (MAN) 78 % (42-78); TOTAL CELLS COUNTED 50
[2020-04-09 19:55] LABS: OVALOCYTES SLIGHT; PLATELET COMMENT DECREASED; POIKILOCYTOSIS SLIGHT
[2020-04-09 19:56] LABS: ANISOCYTOSIS 1+
[2020-04-09] MEDS ORDERED: TAMSULOSIN HCL 0.4 MG CAP.SR.24H PO SCH (22:00)
[2020-04-09] MEDS ORDERED: (PENDING PHARMACY ID) (Pravastatin Sodium [Pravastatin Sodium] 40 MG) PO SCH (22:00)
[2020-04-09] MEDS ORDERED: TIZANIDINE HCL 4 MG TABLET PO SCH (22:00)
[2020-04-09] MEDS ORDERED: ATORVASTATIN CALCIUM 10 MG TABLET PO SCH (22:00)
[2020-04-10] MEDS: OXYCODONE HCL IR 5 MG TABLET PO PRN (05:10)
[2020-04-10 05:55] LABS: BLOOD UREA NITROGEN 15 mg/dL (7-20); CALCIUM 8.4 mg/dL (8.4-10.2); GLUCOSE 89 mg/dL (75-110); POTASSIUM 3.7 mmol/L (3.6-5.0)
[2020-04-10 05:56] LABS: HEMATOCRIT 22.6 % (37.9-51.0); MEAN CORPUSCULAR HEMOGLOBIN 28.3 pg (27.0-33.4); MEAN CORPUSCULAR HGB CONC 33.6 g/dL (32.0-36.0); MEAN CORPUSCULAR VOLUME 84 fl (80-97); RED BLOOD COUNT 2.69 10^6/uL (4.35-5.55); RED CELL DISTRIBUTION WIDTH 18.3 % (11.5-14.0)
[2020-04-10] MEDS ORDERED: LEVOTHYROXINE SODIUM 0.088 MG TABLET PO SCH (06:00)
[2020-04-10 06:02] LABS: CARBON DIOXIDE 26 mmol/L (22-30); CHLORIDE 105 mmol/L (98-107)
[2020-04-10 06:18] LABS: ANION GAP 4 (5-19)
[2020-04-10 06:20] LABS: HEMOGLOBIN 7.6 g/dL (13.5-17.0); PLATELET COUNT 57 10^3/uL (150-450); WHITE BLOOD COUNT 1.5 10^3/uL (4.0-10.5)
[2020-04-10 06:25] LABS: ABSOLUTE LYMPHOCYTES# (MANUAL) 0.2 10^3/uL (0.5-4.7); ABSOLUTE MONOCYTES # (MANUAL) 0.2 10^3/uL (0.1-1.4); BAND NEUTROPHILS % (MANUAL) 2 % (3-5); BASOPHILS % (MANUAL) 0 % (0-2); EOSINOPHILS % (MANUAL) 4 % (0-6); LYMPHOCYTES % (MANUAL) 12 % (13-45); MONOCYTES % (MANUAL) 12 % (3-13); SEGMENTED NEUTROPHILS % (MAN) 70 % (42-78); TOTAL CELLS COUNTED 50
[2020-04-10 06:28] LABS: ANISOCYTOSIS 1+; OVALOCYTES SLIGHT; TEAR DROP CELLS SLIGHT
[2020-04-10 06:29] LABS: PLATELET COMMENT DECREASED
[2020-04-10] MEDS: DOCUSATE SODIUM 100 MG CAPSULE PO SCH ×2 (09:13→09:23)
[2020-04-10] MEDS: CYANOCOBALAMIN (VITAMIN B-12) 1,000 MCG TABLET PO SCH (09:13)
[2020-04-10] MEDS: BUMETANIDE 1 MG TABLET PO SCH ×2 (09:14→11:36)
[2020-04-10] MEDS: VITAMIN E (DL, ACETATE) 400 UNIT CAPSULE PO SCH (09:14)
[2020-04-10] MEDS: POLYETHYLENE GLYCOL 3350 POWDER 17 GM/1 PACKET PO SCH (09:14)
[2020-04-10] MEDS: RIFAXIMIN 550 MG TABLET PO SCH (09:14)
[2020-04-10] MEDS: CHOLECALCIFEROL (D3) 1,000 UNIT (25 MCG) TABLET PO SCH (09:14)
[2020-04-10] MEDS: CEFEPIME HCL 2 GM in DEXTROSE 5%-WATER 50 ML IV SCH (09:14)
[2020-04-10] MEDS: MIDODRINE HCL 5 MG TABLET PO SCH ×2 (09:15→14:24)
[2020-04-10] MEDS ORDERED: MAGNESIUM OXIDE 400 MG TABLET PO SCH (10:00)
[2020-04-10 12:04] VITALS: BP 115/74
[2020-04-10] MEDS ORDERED: METOPROLOL TARTRATE 25 MG TABLET PO SCH (13:00)
[2020-04-10] MEDS ORDERED: CLINDAMYCIN HCL 150 MG CAPSULE PO SCH (14:00)
--- NOTE | 2020-04-10 16:02 | PDOC DISCHARGE SUMMARY ---
Impression - Admit/DC Date/PCP Admission Date/Primary Care Provider: 04/08/20 18:05 Discharge Date: 04/10/20 - Discharge Diagnosis (1) Abdominal pain Is this a current diagnosis for this admission?: Yes (2) Cellulitis of left leg Is this a current diagnosis for this admission?: Yes (3) Chronic anemia Is this a current diagnosis for this admission?: Yes (4) Cirrhosis of liver with ascites Is this a current diagnosis for this admission?: Yes (5) Hypotension Is this a current diagnosis for this admission?: Yes (6) Pancytopenia Is this a current diagnosis for this admission?: Yes - Additional Information Discharge Diet: As Tolerated Discharge Activity: Activity As Tolerated Referrals: OUT,OF [facility] PCP [Other] (PATIENT IS FROM OUT [facility] AND WILL FOLLOW UP WITH PCP UPON RETURNING HOME.) Prescriptions: Clindamycin HCl [Cleocin 150 mg Capsule] 150 mg PO Q8 PRN 5 Days #15 capsule PRN Reason: Home Medications: Albuterol Sulfate [Proair Hfa Inhalation Aerosol 8.5 gm Mdi] 1 puff IH Q4HP PRN 04/08/20 Bumetanide [Bumex 1 mg Tablet] 1 mg PO BID@0800,1200 04/08/20 Cholecalciferol (Vitamin D3) [Vitamin D3 1000 Unit Tablet] 1,000 unit PO DAILY 04/08/20 Cyanocobalamin (Vitamin B-12) [Vitamin B-12 1000 Mcg Tablet] 1 tab PO DAILY 04/08/20 Eplerenone 50 mg PO BID@0800,1200 04/08/20 Hydroxyzine Pamoate [Vistaril 25 mg Capsule] 25 mg PO Q8HP PRN 04/08/20 Iron Polysaccharide Complex [Poly-Iron] 150 mg PO BID 04/08/20 Levalbuterol HCl [Xopenex Concentrate] 1.25 mg IH DAILYP PRN 04/08/20 Magnesium Oxide [Magnesium] 400 mg PO DAILY 04/08/20 Ondansetron HCl [Zofran 8 mg Tablet] 4 mg PO Q8 04/08/20 Oxycodone HCl [Oxy-Ir 5 mg Tablet] 5 mg PO TIDP PRN 04/08/20 Pantoprazole Sodium [Protonix [address] Tablet] 40 mg PO QPM 04/08/20 Polyethylene Glycol 3350 [Miralax Powder 17 gm/Packet] 1 packet PO DAILY 04/08/20 Pravastatin Sodium 40 mg PO QHS 04/08/20 Promethazine HCl [Phenergan 25 mg Tablet] 12.5 mg PO BID 04/08/20 Rifaximin [Xifaxan 550 Mg Tablet] 550 mg PO BID 04/08/20 Tamsulosin HCl [Flomax] 0.4 mg PO QHS 04/08/20 Tizanidine HCl 4 mg PO QHS 04/08/20 Vitamin E 400 unit PO BID 04/08/20 Clindamycin HCl [Cleocin 150 mg Capsule] 150 mg PO Q8 PRN 5 Days #15 capsule 04/10/20 History of Present Illiness History of Present Illness: WILDA WOLF is a 69 year old male Hospital Course Hospital Course: (1) Hypotension Resolved. Baseline hypotensive due to history of cirrhosis. Patient reports typical blood pressures 100s/70-80 Random and a.m. cortisol levels are appropriate TSH normal Continue NS @ 50ml/hr Continued midodrine 5 mg TID CARROL hose Fall precautions (2) Cellulitis of left leg Resolved. Left lower extremity below the knee trace swelling with chronic skin changes, no warmth, erythema, discharge or tenderness. Neurovascularly intact. Presented with low-grade temperature of 99; WBC is trending down 2.8->1.5. Absolute neutrophil 1.3 and LLE +1 edema with erythema, warmth, and tenderness; slightly improved today Venous Doppler negative for SVT/DVT. Blood cultures negative x48 hours. Received 3 days of IV cefepime. Was switched to clindamycin for 5 days. (3) Abdominal pain Much improved. Paracentesis fluid negative for infection. No sign of SBP. Tolerating. Having normal bowel and bladder movements. Blood cultures negative at 48 hours Start empirically on IV cefepime. (4) Pancytopenia Stable. At baseline. Chronic per patient. Likely complicated by Cirrhosis. Stated he recently started receiving Venofer and B12. Panel confirms iron deficiency anemia. No evidence of bleeding. Patient extremely anxious to leave the hospital however concern was raised about his pancytopenia but patient stated that he has always been pancytopenic and he actually showed me his previous results on his patient portal which confirmed his chronic pancytopenia. A copy of previous labs which shows that patient has history of chronic pancytopenia could be find in the chart. Afebrile at the time of discharge. Strongly advised to follow-up with PCP. (5) Chronic anemia As above. (6) Cirrhosis of liver with ascites Patient reports related to ASH Receives paracentesis q14 days. Last paracentesis 04/04 with 8.3L removed followed by albumin Paracentesis on admission with 2L removed followed by albumin Resumed home dose rifaximin and Bumex. Physical Exam Vital Signs: Temp Pulse Resp BP Pulse Ox 98.0 F 93 16 115/74 100 04/10/20 13:44 04/10/20 13:44 04/10/20 13:44 04/10/20 13:44 04/10/20 13:44 Intake & Output 04/09/20 04/10/20 04/11/20 06:59 06:59 06:59 Intake Total 550 3080 1255 Output Total 200 200 Balance 350 2880 1255 Weight 80.1 kg 80.1 kg 80.1 kg General appearance: PRESENT: no acute distress, well-developed, well-nourished Head exam: PRESENT: atraumatic, normocephalic Respiratory exam: PRESENT: clear to auscultation juan. ABSENT: rales, rhonchi, wheezes Cardiovascular exam: PRESENT: RRR. ABSENT: diastolic murmur, rubs, systolic murmur GI/Abdominal exam: PRESENT: ascites, normal bowel sounds, soft. ABSENT: distended, guarding, mass, organolmegaly, rebound, tenderness Neurological exam: PRESENT: alert, awake, oriented to person, oriented to place, oriented to time, oriented to situation, CN II-XII grossly intact. ABSENT: motor sensory deficit Skin exam: PRESENT: dry, intact, warm. ABSENT: cyanosis, rash Results Laboratory Results: WBC 1.5 10^3/uL (4.0-10.5) L* 04/10/20 04:37 RBC 2.69 10^6/uL (4.35-5.55) L 04/10/20 04:37 Hgb 7.6 g/dL (13.5-17.0) L 04/10/20 04:37 Hct 22.6 % (37.9-51.0) L 04/10/20 04:37 MCV 84 fl (80-97) 04/10/20 04:37 MCH 28.3 pg (27.0-33.4) 04/10/20 04:37 MCHC 33.6 g/dL (32.0-36.0) 04/10/20 04:37 RDW 18.3 % (11.5-14.0) H 04/10/20 04:37 Plt Count 57 10^3/uL (150-450) L 04/10/20 04:37 Lymph % (Auto) Not Reportable 04/10/20 04:37 [place] % (Auto) Not Reportable 04/10/20 04:37 Eos % (Auto) Not Reportable 04/10/20 04:37 Baso % (Auto) Not Reportable 04/10/20 04:37 Reticulocyte # 0.076 10^6/uL (0.028-0.122) 04/09/20 09:00 Absolute Neuts (auto) Not Reportable 04/10/20 04:37 Absolute Lymphs (auto) Not Reportable 04/10/20 04:37 Absolute Monos (auto) Not Reportable 04/10/20 04:37 Absolute Eos (auto) Not Reportable 04/10/20 04:37 Absolute Basos (auto) Not Reportable 04/10/20 04:37 Total Counted 50 04/10/20 04:37 Seg Neutrophils % Not Reportable 04/10/20 04:37 Seg Neuts % (Manual) 70 % (42-78) 04/10/20 04:37 Band Neutrophils % 2 % (3-5) L 04/10/20 04:37 Lymphocytes % (Manual) 12 % (13-45) L 04/10/20 04:37 Monocytes % (Manual) 12 % (3-13) 04/10/20 04:37 Eosinophils % (Manual) 4 % (0-6) 04/10/20 04:37 Basophils % (Manual) 0 % (0-2) 04/10/20 04:37 Abs Neuts (Manual) 1.1 10^3/uL (1.7-8.2) L 04/10/20 04:37 Abs Lymphs (Manual) 0.2 10^3/uL (0.5-4.7) L 04/10/20 04:37 Abs Monocytes (Manual) 0.2 10^3/uL (0.1-1.4) 04/10/20 04:37 Absolute Eos (Manual) 0.1 10^3/uL (0.0-0.6) 04/10/20 04:37 Abs Basophils (Manual) 0.0 10^3/uL (0.0-0.2) 04/10/20 04:37 Toxic Granulation SLIGHT 04/09/20 04:13 Platelet Comment DECREASED 04/10/20 04:37 Poikilocytosis SLIGHT 04/09/20 19:02 Anisocytosis 1+ 04/10/20 04:37 Tear Drop Cells SLIGHT 04/10/20 04:37 Ovalocytes SLIGHT 04/10/20 04:37 Retic Count (auto) 3.12 % (0.66-2.85) H 04/09/20 09:00 PT 18.5 SEC (11.4-15.4) H 04/09/20 04:13 INR 1.52 04/09/20 04:13 APTT 32.7 SEC (23.5-35.8) 04/08/20 10:21 D-Dimer 3.23 ug/mL (0.00-0.50) H 04/08/20 10:21 Sodium 134.5 mmol/L (137-145) L 04/10/20 04:37 Potassium 3.7 mmol/L (3.6-5.0) 04/10/20 04:37 Chloride 105 mmol/L (98-107) 04/10/20 04:37 Carbon Dioxide 26 mmol/L (22-30) 04/10/20 04:37 Anion Gap 4 (5-19) L 04/10/20 04:37 BUN 15 mg/dL (7-20) 04/10/20 04:37 Creatinine 0.96 mg/dL (0.52-1.25) 04/10/20 04:37 Est GFR ( Amer) > 60 (>60) 04/10/20 04:37 Est GFR (MDRD) Non-Af > 60 (>60) 04/10/20 04:37 Glucose 89 mg/dL (75-110) 04/10/20 04:37 Lactic Acid 1.4 mmol/L (0.7-2.1) 04/08/20 11:10 Calcium 8.4 mg/dL (8.4-10.2) 04/10/20 04:37 Iron 45.9 ug/dL (49-181) L 04/09/20 09:00 TIBC 198 ug/dL (250-450) L 04/09/20 09:00 % Saturation 23 % 04/09/20 09:00 Transferrin 121.61 mg/dL (206.00-381.00) L 04/09/20 09:00 Ferritin 102.00 ng/mL (17.9-464.0) 04/09/20 09:00 Total Bilirubin 0.6 mg/dL (0.2-1.3) 04/09/20 04:13 Direct Bilirubin 0.0 mg/dL (0.0-0.4) 04/09/20 04:13 Neonat Total Bilirubin Not Reportable 04/09/20 04:13 Neonat Direct Bilirubin Not Reportable 04/09/20 04:13 Neonat Indirect Bili Not Reportable 04/09/20 04:13 AST 23 U/L (17-59) 04/09/20 04:13 ALT 12 U/L (<50) 04/09/20 04:13 Alkaline Phosphatase 61 U/L (38-126) 04/09/20 04:13 Troponin I < 0.012 ng/mL 04/08/20 10:21 NT-Pro-B Natriuret Pep 820 pg/mL (<125) H 04/08/20 10:21 Total Protein 5.6 g/dL (6.3-8.2) L 04/09/20 04:13 Albumin 2.7 g/dL (3.5-5.0) L 04/09/20 04:13 Lipase 39.0 U/L (23-300) 04/08/20 10:21 Vitamin B12 > 1000.0 pg/mL (239-931) H 04/09/20 09:00 Folate 3.93 ng/mL (>2.76) 04/09/20 09:00 TSH 3.65 uIU/mL (0.47-4.68) 04/09/20 04:13 Random Cortisol 10.40 ug/dL (None Established) 04/08/20 10:21 Cortisol AM Sample 5.42 ug/dL (4.46-22.7) 04/09/20 04:13 Urine Color Cancelled 04/08/20 10:21 Urine Color YELLOW 04/08/20 10:21 Urine Appearance CLEAR 04/08/20 10:21 Urine Appearance Cancelled 04/08/20 10:21 Urine pH 7.0 (5.0-9.0) 04/08/20 10:21 Urine pH Cancelled 04/08/20 10:21 Ur Specific [place] 1.009 04/08/20 10:21 Ur Specific [place] Cancelled 04/08/20 10:21 Urine Protein Cancelled 04/08/20 10:21 Urine Protein NEGATIVE mg/dL (NEGATIVE) 04/08/20 10:21 Urine Glucose (UA) Cancelled 04/08/20 10:21 Urine Glucose (UA) NEGATIVE mg/dL (NEGATIVE) 04/08/20 10:21 Urine Ketones Cancelled 04/08/20 10:21 Urine Ketones NEGATIVE mg/dL (NEGATIVE) 04/08/20 10:21 Urine Blood Cancelled 04/08/20 10:21 Urine Blood NEGATIVE (NEGATIVE) 04/08/20 10:21 Urine Nitrite Cancelled 04/08/20 10:21 Urine Nitrite NEGATIVE (NEGATIVE) 04/08/20 10:21 Urine Bilirubin Cancelled 04/08/20 10:21 Urine Bilirubin NEGATIVE (NEGATIVE) 04/08/20 10:21 Urine Urobilinogen Cancelled 04/08/20 10:21 Urine Urobilinogen NEGATIVE mg/dL (<2.0) 04/08/20 10:21 Ur Leukocyte Esterase Cancelled 04/08/20 10:21 Ur Leukocyte Esterase NEGATIVE (NEGATIVE) 04/08/20 10:21 Urine WBC (Auto) 3 /HPF 04/08/20 10:21 Urine WBC (Auto) Cancelled 04/08/20 10:21 Urine RBC (Auto) 1 /HPF 04/08/20 10:21 Urine RBC (Auto) Cancelled 04/08/20 10:21 U Hyaline Cast (Auto) 18 /LPF 04/08/20 10:21 U Hyaline Cast (Auto) Cancelled 04/08/20 10:21 Urine Bacteria (Auto) Cancelled 04/08/20 10:21 Urine Red Cell Clumps Cancelled 04/08/20 10:21 Urine WBC Clumps Cancelled 04/08/20 10:21 Squamous Epi Cells Auto <1 /HPF 04/08/20 10:21 Squamous Epi Cells Auto Cancelled 04/08/20 10:21 U Non-Squamous Epis Auto Cancelled 04/08/20 10:21 Calcium Carbonate Cryst Cancelled 04/08/20 10:21 Calcium Phosphate Cryst Cancelled 04/08/20 10:21 Calcium Oxalate Cr Auto Cancelled 04/08/20 10:21 Leucine Crystals Cancelled 04/08/20 10:21 Cystine Crystals Cancelled 04/08/20 10:21 Uric Acid Cryst (Auto) Cancelled 04/08/20 10:21 Triple Phos Cryst (Auto) Cancelled 04/08/20 10:21 Tyrosine Crystals Cancelled 04/08/20 10:21 Amorphous Sediment Auto Cancelled 04/08/20 10:21 Cellular Casts Cancelled 04/08/20 10:21 Epithelial Casts (Auto) Cancelled 04/08/20 10:21 Fatty Casts Cancelled 04/08/20 10:21 Granular Casts (Auto) Cancelled 04/08/20 10:21 Waxy Casts (Auto) Cancelled 04/08/20 10:21 Broad Casts Cancelled 04/08/20 10:21 RBC Casts (Auto) Cancelled 04/08/20 10:21 WBC Casts (Auto) Cancelled 04/08/20 10:21 Urine Mucus (Auto) Cancelled 04/08/20 10:21 Urine Mucus (Auto) RARE /LPF 04/08/20 10:21 U Trichomonas (Auto) Cancelled 04/08/20 10:21 Ur Yeast w Hyphae Cancelled 04/08/20 10:21 Urine Yeast (Budding) Cancelled 04/08/20 10:21 Urine Ascorbic Acid Cancelled 04/08/20 10:21 Urine Ascorbic Acid NEGATIVE (NEGATIVE) 04/08/20 10:21 Fluid Type PERITONEAL 04/08/20 13:08 Fluid Source ABDOMEN 04/08/20 13:08 Fluid Color STRAW 04/08/20 13:08 Fluid Appearance SLIGHTLY HAZY 04/08/20 13:08 Fluid Viscosity LIQUID 04/08/20 13:08 Fluid WBC 141 /uL 04/08/20 13:08 Fluid RBC 116 /uL 04/08/20 13:08 Fluid Seg Neutrophils 32 % 04/08/20 13:08 Fluid Lymphocytes 62 % 04/08/20 13:08 Fluid Monocytes 6 % 04/08/20 13:08 Fluid Eosinophils 0 % 04/08/20 13:08 Fluid Basophils 0 % 04/08/20 13:08 Slides for Path Review PATHOLOGIST REVIEWED 04/09/20 04:13 Blood Type A POSITIVE 04/09/20 09:00 Blood Type Confirm A POSITIVE 04/09/20 09:07 Antibody Screen NEGATIVE 04/09/20 09:00 Crossmatch See Detail 04/09/20 09:00 04/08/20 10:21 Troponin I < 0.012 NT-Pro-B Natriuret Pep 820 H Impressions: Paracentesis Ultrasound 04/08/20 00:00 IMPRESSION: Successful ultrasound-guided paracentesis. Acute Abdomen Series 04/08/20 11:05 IMPRESSION: 1. A few nonspecific small air-fluid levels on the upright image. 2. Bilateral subcentimeter nephrolithiasis. 3. Mild fullness in the right hilar region. A stent overlies the right sup rahilar region. Mild right pleural effusion and compressive atelectasis right lower lung zone. Comparison with any prior outside examinations suggested. . Venous Doppler Study 04/08/20 12:00 IMPRESSION: NO EVIDENCE DVT OR SVT IN EITHER LEG. Stroke Is this a Stroke Patient?: No Acute Heart Failure - Is this a Heart Failure Patient?: No
== END 2020-04-10 14:22 | disposition home or self-care (01) | DRG 315 ==
LOC: ER 09:51 → EH 18:05 → 4N 19:55
PROVIDERS: ADMIT Family Medicine; ATTEND Internal Medicine
PROC: 0W9G3ZX Drainage of Peritoneal Cavity, Percutaneous Approach, Diagnostic (ICD-10-PCS; principal; 2020-04-08)
PROC: 30233N1 Transfusion of Nonautologous Red Blood Cells into Peripheral Vein, Percutaneous Approach (ICD-10-PCS; 2020-04-09)
DX: I95.9 Hypotension, unspecified (principal); R18.8 Other ascites; L03.116 Cellulitis of left lower limb; D69.3 Immune thrombocytopenic purpura; E87.1 Hypo-osmolality and hyponatremia; D61.818 Other pancytopenia; K74.60 Unspecified cirrhosis of liver; K75.81 Nonalcoholic steatohepatitis (NASH); D50.9 Iron deficiency anemia, unspecified; E87.6 Hypokalemia; I10 Essential (primary) hypertension; J44.9 Chronic obstructive pulmonary disease, unspecified; R10.31 Right lower quadrant pain; E78.00 Pure hypercholesterolemia, unspecified
CPT/HCPCS: 36415; 36430; 49083; 74022; 80048; 80053; 81001; 82533; 82607; 82728; 82746; 83540; 83550; 83605; 83690; 83880; 84443; 84466; 84484; 85025; 85045; 85379; 85610; 85730; 86850; 86900; 86901; 86920; 87040; 87070; 87075; 87205; 89050; 93005; 93010; 93970; 96365; 96366; 96367; 99285; A9270-GY; J0692; J2405; J3490; J7030; J7050; J7060; P9016; P9047